=== PATIENT | male | born 1995 | race African-American/Black ===

== ENCOUNTER 2019-08-04 17:29 | Emergency (ER) | payer SELFPAY ==
[2019-08-04] MEDS ORDERED: NORMAL SALINE 1000 ML 1,000 ML IV PRN (18:32)
--- NOTE | 2019-08-04 18:34 | ER Document Report ---
ED Medical Screen (RME) - General Chief Complaint: High Blood Sugar Stated Complaint: POSSIBLE HIGH BLOOD SUGAR, SORE THROAT Time Seen by Provider: 08/04/19 18:27 - HPI Notes: 08/04/19 18:34 24-year-old male presents from [facility] urgent care for concerns of DKA with with a Accu check blood sugar that was read over 500, polyuria, polydipsia that has become progressively worse over the last week. Patient went to the urgent care because he was concerned he may have had a UTI because he has been urinating so much, denies any pain with urination. Patient denies history of diabetes. Patient has had intermittent blood pressure elevations however he went to the urgent care for concerns of a UTI. Denies any fevers or chills, denies any abdominal pain, shortness of breath, chest pain, numbness or tingling down bilateral lower extremities. Denies any recent illnesses. I have greeted and performed a rapid initial assessment of this patient. A comprehensive ED assessment and evaluation of the patient, analysis of test results and completion of the medical decision making process will be conducted by additional ED providers. PHYSICAL EXAMINATION: GENERAL: Well-appearing, well-nourished and in no acute distress. HEAD: Atraumatic, normocephalic. EYES: Pupils equal round extraocular movements intact, conjunctiva are normal. NECK: Normal range of motion CV: s1, s2 regular LUNGS: No respiratory distress Musculoskeletal: Normal range of motion NEUROLOGICAL: Normal speech, normal gait. SKIN: Warm, Dry, normal turgor, no rashes or lesions noted. - Related Data Allergies/Adverse Reactions: No Known Allergies Allergy (Verified 08/04/19 18:27) Physical Exam - Vital signs Vitals: Temp Pulse Resp BP Pulse Ox 98.1 F 123 H 20 158/105 H 96 08/04/19 17:53 08/04/19 17:53 08/04/19 17:53 08/04/19 17:53 08/04/19 17:53 Course - Vital Signs Vital signs: Temp Pulse Resp BP Pulse Ox 98.1 F 123 H 20 158/105 H 96 08/04/19 17:53 08/04/19 17:53 08/04/19 17:53 08/04/19 17:53 08/04/19 17:53
--- NOTE | 2019-08-04 19:16 | RADIOLOGY REPORT (SQ) ---
EXAM DESCRIPTION: CHEST 2 VIEWS COMPLETED DATE/TIME: 08/04/2019 5:49 pm REASON FOR STUDY: r/o PNA COMPARISON: None EXAM PARAMETERS: NUMBER OF VIEWS: two views TECHNIQUE: Digital Frontal and Lateral radiographic views of the chest acquired. RADIATION DOSE: NA LIMITATIONS: none FINDINGS: LUNGS AND PLEURA: No opacities, masses or pneumothorax. No pleural effusion. MEDIASTINUM AND HILAR STRUCTURES: No masses or contour abnormalities. HEART AND VASCULAR STRUCTURES: Heart normal size. No evidence for failure. BONES: No acute findings. HARDWARE: None in the chest. OTHER: No other significant finding. IMPRESSION: NO ACUTE RADIOGRAPHIC FINDING IN THE CHEST. TECHNICAL DOCUMENTATION: JOB ID: [id number] [employer]- All Rights Reserved Reading location - IP/workstation name: [email or web address]
[2019-08-04 19:21] LABS: ABSOLUTE BASOPHILS # (AUTO) 0.1 10^3/uL (0.0-0.2); ABSOLUTE EOSINOPHILS # (AUTO) 0.2 10^3/uL (0.0-0.6); BASOPHILS % (AUTO) 0.8 % (0-2); EOSINOPHILS % (AUTO) 1.3 % (0-6); HEMATOCRIT 42.9 % (37.9-51.0); HEMOGLOBIN 14.8 g/dL (13.5-17.0); LYMPHOCYTES % (AUTO) 40.7 % (13-45); MEAN CORPUSCULAR HEMOGLOBIN 27.3 pg (27.0-33.4); MEAN CORPUSCULAR HGB CONC 34.6 g/dL (32.0-36.0); MEAN CORPUSCULAR VOLUME 79 fl (80-97); PLATELET COUNT 372 10^3/uL (150-450); RED BLOOD COUNT 5.43 10^6/uL (4.35-5.55); SEGMENTED NEUTROPHILS % (AUTO) 49.2 % (42-78); TOTAL CELLS COUNTED % (AUTO) 100 %; WHITE BLOOD COUNT 12.2 10^3/uL (4.0-10.5)
[2019-08-04 19:46] LABS: ALBUMIN 5.2 g/dL (3.5-5.0); ALKALINE PHOSPHATASE 163 U/L (38-126); ASPARTATE AMINO TRANSFERASE 35 U/L (17-59); BILIRUBIN,DIRECT 0.4 mg/dL (0.0-0.4); BILIRUBIN,TOTAL 0.6 mg/dL (0.2-1.3); BLOOD UREA NITROGEN 11 mg/dL (7-20); CALCIUM 10.9 mg/dL (8.4-10.2); POTASSIUM 4.7 mmol/L (3.6-5.0); TOTAL PROTEIN 9.5 g/dL (6.3-8.2)
[2019-08-04 19:51] LABS: CARBON DIOXIDE 22 mmol/L (22-30); CHLORIDE 91 mmol/L (98-107)
[2019-08-04 19:52] LABS: APPEARANCE,URINE CLEAR; BILIRUBIN,URINE NEGATIVE (NEGATIVE); COLOR,URINE YELLOW; GLUCOSE, URINE >=500 mg/dL (NEGATIVE); KETONES,URINE 80 mg/dL (NEGATIVE); LEUKOCYTE ESTERASE,URINE NEGATIVE (NEGATIVE); NITRITE,URINE NEGATIVE (NEGATIVE); PROTEIN,URINE 30 mg/dL (NEGATIVE); URINE SPECIFIC GRAVITY 1.037; UROBILINOGEN,URINE NEGATIVE mg/dL (<2.0)
[2019-08-04 19:54] LABS: ANION GAP 21 (5-19)
[2019-08-04 19:55] LABS: GLUCOSE 463 mg/dL (75-110)
[2019-08-04] MEDS ORDERED: NORMAL SALINE 1000 ML 1,000 ML IV ONE ×2 (21:02→23:03)
[2019-08-04] MEDS ORDERED: INSULIN REG, HUMAN 100 UNIT/ML 3 ML VIAL (PYX) SUBCUT ONE (21:03)
--- NOTE | 2019-08-04 21:04 | ER Document Report ---
ED General - General Chief Complaint: High Blood Sugar Stated Complaint: POSSIBLE HIGH BLOOD SUGAR, SORE THROAT Time Seen by Provider: 08/04/19 18:27 Primary Care Provider: [facility] [Provider Group] - Follow up in 1 week Notes: Patient is a 24-year-old male that comes emergency department for chief compla int of being sent over from urgent care for being found to have blood glucose greater than 500. Patient states for the past week he has been constantly urinating and he became concerned he had a urinary tract infection so he went to be evaluated by urgent care. He denies vomiting, abdominal pain, shortness of breath, fever, dizziness, chest pain. He denies any diagnosed medical history, no past medical history other than obesity. He takes no daily medications. TRAVEL OUTSIDE OF THE [place] IN LAST 30 DAYS: No - Related Data Allergies/Adverse Reactions: No Known Allergies Allergy (Verified 08/04/19 18:27) Past Medical History - General Information source: Patient - Social History Smoking Status: Never Smoker Chew tobacco use (# tins/day): No Frequency of alcohol use: Occasional Drug Abuse: None Lives with: Family Family History: Reviewed & Not Pertinent Patient has suicidal ideation: No Patient has homicidal ideation: No Endocrine Medical History: Reports: Hx Diabetes Mellitus Type 2 - Immunizations Immunizations up to date: Yes Hx Diphtheria, Pertussis, Tetanus Vaccination: Yes Review of Systems - Review of Systems Constitutional: No symptoms reported EENT: No symptoms reported Cardiovascular: No symptoms reported Respiratory: No symptoms reported Gastrointestinal: No symptoms reported Genitourinary: See HPI Male Genitourinary: No symptoms reported Musculoskeletal: No symptoms reported Skin: No symptoms reported Hematologic/Lymphatic: No symptoms reported Neurological/Psychological: No symptoms reported Physical Exam - Vital signs Vitals: Temp Pulse Resp BP Pulse Ox 98.1 F 123 H 20 158/105 H 96 08/04/19 17:53 08/04/19 17:53 08/04/19 17:53 08/04/19 17:53 08/04/19 17:53 - Notes Notes: GENERAL: Alert, interacts well. No acute distress. HEAD: Normocephalic, atraumatic. EYES: Pupils equal, round, and reactive to light. Extraocular movements intact. ENT: Oral mucosa moist, tongue midline. Oropharynx unremarkable. Airway patent. LUNGS: Clear to auscultation bilaterally, no wheezes, rales, or rhonchi. No respiratory distress. HEART: Tachycardia with normal rhythm. No murmur ABDOMEN: Soft, non-tender. Non-distended. EXTREMITIES: Moves all 4 extremities spontaneously. No edema, normal radial and dorsalis pedis pulses bilaterally. No cyanosis. BACK: no cervical, thoracic, lumbar midline tenderness. No saddle anesthesia, normal distal neurovascular exam. Moves all extremities in full range of motion. NEUROLOGICAL: Alert and oriented x3. Normal speech. Cranial nerves II through XII grossly intact. PSYCH: Normal affect, normal mood. SKIN: Warm, dry, normal turgor. No rashes or lesions noted. Course - Re-evaluation Re-evalutation: Patient has new onset diabetes noted with hyperglycemia. He does have some ketones in the urine and his anion gap is borderline, he is also tachycardic. However patient has received IV fluids, insulin, his tachycardia is resolved, he has had no additional symptoms. Symptoms have been going on for days developing up to today. Bicarbonate is normal in addition to this. Clinical picture is most consistent with hypoglycemia in the setting of type 2 diabetes, clinical p icture is not as suggestive of DKA. Blood glucose is downtrending nicely. Remaining work-up unremarkable. On evaluation patient asymptomatic, states he feels great, is requesting to leave. Patient states that he is very motivated to lose weight, eat well, and lose the new onset diabetes. However he is also very cooperative with starting medication and following up within the week with primary care, he asked for referral before I discussed this. I feel patient will be very compliant in clos e follow-up and adjustment of his medications, discussed recommendations, follow-up, return precautions. Patient states appreciation and agreement. Stable at time of discharge. - Vital Signs Vital signs: Temp Pulse Resp BP Pulse Ox 98.5 F 123 H 17 124/56 L 97 08/05/19 01:15 08/04/19 17:53 08/05/19 01:00 08/05/19 01:15 08/05/19 01:00 - Laboratory Result Diagrams: 08/04/19 19:00 08/04/19 19:00 Laboratory results interpreted by me: 08/04/19 08/04/19 08/04/19 18:56 19:00 19:00 WBC 12.2 H MCV 79 L Absolute Lymphs (auto) 5.0 H Sodium 134.3 L Chloride 91 L Anion Gap 21 H Glucose 463 H* POC Glucose 439 H* Calcium 10.9 H Alkaline Phosphatase 163 H Total Protein 9.5 H Albumin 5.2 H Urine Protein Urine Glucose (UA) Urine Ketones Urine Ascorbic Acid 08/04/19 08/05/19 19:18 00:47 WBC MCV Absolute Lymphs (auto) Sodium Chloride Anion Gap Glucose POC Glucose 302 H Calcium Alkaline Phosphatase Total Protein Albumin Urine Protein 30 H Urine Glucose (UA) >=500 H Urine Ketones 80 H Urine Ascorbic Acid 20 H Discharge - Discharge Clinical Impression: New onset type 2 diabetes mellitus, Dehydration Condition: Stable Disposition: HOME, SELF-CARE Additional Instructions: You have type 2 diabetes. Please begin the medication prescribed, avoid foods high in carbohydrates, and follow-up closely with the primary care provider for adjustment and management of your diabetes. Drink plenty of fluids. Return if you worsen including vomiting, severe abdominal pain, inability to urinate, or any other concerning or worsening symptoms. Prescriptions: Metformin HCl [Glucophage 500 mg Tablet] 500 mg PO BID #60 tablet Forms: Return to Work Referrals: [facility] [Provider Group] - Follow up in 1 week
[2019-08-05 01:23] VITALS: BP 124/56
--- NOTE | 2019-08-05 07:11 | EKG REPORT ---
SEVERITY:- OTHERWISE NORMAL ECG - SINUS TACHYCARDIA : Confirmed by: Jose Luis Holly MD 05-Aug-2019 07:10:19
== END 2019-08-05 01:23 | disposition home or self-care (01) ==
LOC: ER 17:29
DX: E11.65 Type 2 diabetes mellitus with hyperglycemia (principal); E86.0 Dehydration; R00.0 Tachycardia, unspecified
CPT/HCPCS: 93005; 99285; 96360; 96361; 36415; 82962; 85025; 80053; 81001; 84484; 71046; 93010; J1815; J7030

== ENCOUNTER 2019-08-10 14:59 | Inpatient (IN) | payer SELFPAY ==
[2019-08-10] MEDS ORDERED: NORMAL SALINE 1000 ML 1,000 ML IV ONE ×2 (15:21→15:22)
--- NOTE | 2019-08-10 15:21 | ER Document Report ---
ED Medical Screen (RME) - General Chief Complaint: High Blood Sugar Stated Complaint: POSSIBLE HIGH BLOOD SUGAR Time Seen by Provider: 08/10/19 15:16 Mode of Arrival: Wheelchair Notes: 24-year-old male presented to ED for elevated blood sugar. He states he has had no appetite and has been eating almost nothing for the last week. He states he has lost 30 pounds in the last week due to no appetite nausea and vomiting. He states he went to the primary care doctor and they got blood sugar on 1 thing of 380 and then another finger 440. We will recheck his Accu-Chek as well as get complete blood sugar work-up. He states he is not able to eat anything more than maybe a yogurt a day due to the nausea and vomiting. His is at his side and states that he has not been eating anything due to nausea and vomiting. His states that he was at the primary care they took his sugar then given 4 units of insulin and his sugar went up after the insulin. I have greeted and performed a rapid initial assessment of this patient. A comprehensive ED assessment and evaluation of the patient, analysis of test results and completion of medical decision making process will be conducted by an additional ED providers. TRAVEL OUTSIDE OF THE [place] IN LAST 30 DAYS: No - Related Data Allergies/Adverse Reactions: No Known Allergies Allergy (Verified 08/04/19 18:27) Past Medical History Endocrine Medical History: Reports: Hx Diabetes Mellitus Type 2 - Immunizations Immunizations up to date: Yes Hx Diphtheria, Pertussis, Tetanus Vaccination: Yes Physical Exam - Vital signs Vitals: Temp Pulse Resp BP Pulse Ox 97.7 F 117 H 18 145/89 H 100 08/10/19 15:14 08/10/19 15:14 08/10/19 15:14 08/10/19 15:14 08/10/19 15:14 Course - Vital Signs Vital signs: Temp Pulse Resp BP Pulse Ox 97.7 F 117 H 18 145/89 H 100 08/10/19 15:14 08/10/19 15:14 08/10/19 15:14 08/10/19 15:14 08/10/19 15:14
[2019-08-10] MEDS ORDERED: ONDANSETRON HCL INJ/PF 4 MG/2 ML SDV IV ONE (15:22)
[2019-08-10 16:12] LABS: ABSOLUTE LYMPHOCYTES (AUTO) 2.4 10^3/uL (0.5-4.7); ABSOLUTE MONOCYTES (AUTO) 0.9 10^3/uL (0.1-1.4); ABSOLUTE NEUT (AUTO) 9.2 10^3/uL (1.7-8.2); BASOPHILS % (AUTO) 0.3 % (0-2); EOSINOPHILS % (AUTO) 0.2 % (0-6); HEMATOCRIT 46.5 % (37.9-51.0); HEMOGLOBIN 15.5 g/dL (13.5-17.0); LYMPHOCYTES % (AUTO) 19.2 % (13-45); MEAN CORPUSCULAR HEMOGLOBIN 26.8 pg (27.0-33.4); MEAN CORPUSCULAR HGB CONC 33.3 g/dL (32.0-36.0); MEAN CORPUSCULAR VOLUME 80 fl (80-97); MONOCYTES % (AUTO) 7.3 % (3-13); PLATELET COUNT 470 10^3/uL (150-450); RED BLOOD COUNT 5.79 10^6/uL (4.35-5.55); RED CELL DISTRIBUTION WIDTH 14.6 % (11.5-14.0); TOTAL CELLS COUNTED % (AUTO) 100 %; WHITE BLOOD COUNT 12.6 10^3/uL (4.0-10.5)
[2019-08-10 16:30] LABS: ALBUMIN 5.5 g/dL (3.5-5.0); ALKALINE PHOSPHATASE 147 U/L (38-126); ASPARTATE AMINO TRANSFERASE 22 U/L (17-59); BILIRUBIN,DIRECT 0.5 mg/dL (0.0-0.4); BILIRUBIN,TOTAL 0.6 mg/dL (0.2-1.3); BLOOD UREA NITROGEN 17 mg/dL (7-20); CALCIUM 10.5 mg/dL (8.4-10.2); POTASSIUM 5.2 mmol/L (3.6-5.0); TOTAL PROTEIN 9.9 g/dL (6.3-8.2)
[2019-08-10 16:35] LABS: CHLORIDE 101 mmol/L (98-107)
[2019-08-10 16:44] LABS: CARBON DIOXIDE 8 mmol/L (22-30); GLUCOSE 491 mg/dL (75-110)
--- NOTE | 2019-08-10 17:52 | ER Document Report ---
ED General - General Chief Complaint: High Blood Sugar Stated Complaint: POSSIBLE HIGH BLOOD SUGAR Time Seen by Provider: 08/10/19 15:16 Primary Care Provider: STIVEN PFEIFFER MD [Primary Care Provider] - Follow up as needed Mode of Arrival: Wheelchair TRAVEL OUTSIDE OF THE [place] IN LAST 30 DAYS: No - HPI Notes: 24-year-old male seen for elevated blood sugar. This gentleman was previously diagnosed with new onset "diabetes mellitus type 2" approximately 1 week ago. He was started on metformin. He has been followed at [facility].. Comes back in today saying he is worse with generalized weakness, vomiting, polydipsia and polyuria. Vision is also blurred. - Related Data Allergies/Adverse Reactions: No Known Allergies Allergy (Verified 08/04/19 18:27) Past Medical History - General Information source: Patient - Social History Smoking Status: Never Smoker Chew tobacco use (# tins/day): No Frequency of alcohol use: None Drug Abuse: None Family History: Reviewed & Not Pertinent Patient has suicidal ideation: No Patient has homicidal ideation: No Endocrine Medical History: Reports: Hx Diabetes Mellitus Type 2 - Immunizations Immunizations up to date: Yes Hx Diphtheria, Pertussis, Tetanus Vaccination: Yes Review of Systems - Review of Systems Notes: Constitutional: Negative for fever. HENT: Negative for sore throat. Eyes: Negative for visual changes. Cardiovascular: Negative for chest pain. Respiratory: Negative for shortness of breath. Gastrointestinal: Nausea and vomiting as per HPI. Genitourinary: Urinary frequency and nocturia. Negative for dysuria. Musculoskeletal: Negative for back pain. Skin: Negative for rash. Neurological: Negative for headaches, weakness or numbness. 10 point ROS negative except as marked above and in HPI. Physical Exam - Vital signs Vitals: Temp Pulse Resp BP Pulse Ox 97.7 F 117 H 18 145/89 H 100 08/10/19 15:14 08/10/19 15:14 08/10/19 15:14 08/10/19 15:14 08/10/19 15:14 - Notes Notes: GENERAL: Moderately obese male who appears approximately stated age alert and awake. SKIN: Good turgor no rashes. HEAD: Normocephalic atraumatic. EYES: PERRLA. EOMI. Conjunctivae and sclerae clear. EARS: CANALS AND TMS CLEAR. NOSE: CLEAR. MOUTH: Moist mucosa. Good dentition. No stridor or edema. No drooling. NECK: Supple. No masses or thyromegaly. No adenopathy. Carotids 2+ without bruits. No JVD. BACK: Symmetrical without tenderness. CHEST: Respirations unlabored. Breath sounds clear and symmetrical. HEART: Regular rhythm. No murmur gallop or rub. ABDOMEN: Soft nontender without masses, organomegaly or rebound. Bowel sounds normally active. No bruits. GENITALIA: Deferred. EXTREMITIES: No edema. No calf tenderness. Cap refill less than 1.5 seconds. Dorsalis pedis and posterior tibial pulses 3+ and symmetrical. NEUROLOGICAL: GCS 15. Alert and oriented x3. Normal gait. Fluent speech. Cranial nerves II through XII intact. Sensorimotor and cerebellar normal. Normal tone. PSYCHIATRIC: Appropriate affect. Course - Re-evaluation Re-evalutation: 08/10/19 18:37 Patient is in DKA. IV insulin drip has been initiated. ICU admission. - Vital Signs Vital signs: Temp Pulse Resp BP Pulse Ox 97.7 F 117 H 18 145/89 H 99 08/10/19 15:14 08/10/19 15:14 08/10/19 15:14 08/10/19 15:14 08/10/19 18:21 - Laboratory Result Diagrams: 08/10/19 15:57 08/10/19 15:57 Laboratory results interpreted by me: 08/10/19 08/10/19 08/10/19 15:20 15:57 15:57 WBC 12.6 H RBC 5.79 H MCH 26.8 L RDW 14.6 H Plt Count 470 H Absolute Neuts (auto) 9.2 H VBG pH VBG HCO3 Potassium 5.2 H Carbon Dioxide 8 L* Anion Gap 29 H Glucose 491 H* POC Glucose 418 H* Calcium 10.5 H Direct Bilirubin 0.5 H Alkaline Phosphatase 147 H Total Protein 9.9 H Albumin 5.5 H Urine Protein Urine Glucose (UA) Urine Ketones Urine Blood Ur Leukocyte Esterase 08/10/19 08/10/19 08/10/19 16:30 17:56 18:07 WBC RBC MCH RDW Plt Count Absolute Neuts (auto) VBG pH 7.07 L* VBG HCO3 11.8 L Potassium Carbon Dioxide Anion Gap Glucose POC Glucose 326 H Calcium Direct Bilirubin Alkaline Phosphatase Total Protein Albumin Urine Protein 100 H Urine Glucose (UA) >=500 H Urine Ketones 80 H Urine Blood SMALL H Ur Leukocyte Esterase TRACE H Critical Care Note - Critical Care Note Total time excluding time spent on procedures (mins): 35 Comments: IV normal saline bolus. IV insulin drip initiated. Case discussed with general claims agent and patient will be admitted to ICU. Discharge - Discharge Clinical Impression: Diabetic ketoacidosis Qualifiers: Diabetes mellitus type: other specified (including EMILE) Diabetes mellitus complication detail: without coma Qualified Code(s): E13.10 - Other specified diabetes mellitus with ketoacidosis without coma Condition: Critical Disposition: ADMITTED INPATIENT Admitting Provider: Kranthi (Communications Maintainer) Unit Admitted: ICU Referrals: STIVEN PFEIFFER MD [Primary Care Provider] - Follow up as needed
[2019-08-10 18:07] LABS: APPEARANCE,URINE CLEAR; BILIRUBIN,URINE NEGATIVE (NEGATIVE); COLOR,URINE YELLOW; GLUCOSE, URINE >=500 mg/dL (NEGATIVE); KETONES,URINE 80 mg/dL (NEGATIVE); LEUKOCYTE ESTERASE,URINE TRACE (NEGATIVE); NITRITE,URINE NEGATIVE (NEGATIVE); PROTEIN,URINE 100 mg/dL (NEGATIVE); URINE SPECIFIC GRAVITY 1.023; UROBILINOGEN,URINE NEGATIVE mg/dL (<2.0)
[2019-08-10 18:14] LABS: VENOUS BLOOD BASE EXCESS -17.7 mmol/L; VENOUS BLOOD HCO3 11.8 mmol/L (20-32); VENOUS BLOOD PCO2 41.5 mmHg (35-63)
[2019-08-10 18:16] LABS: VENOUS BLOOD PH 7.07 (7.30-7.42)
[2019-08-10 18:22] LABS: ANION GAP 29 (5-19)
[2019-08-10] MEDS ORDERED: NORMAL SALINE 100 ML with INSULIN REGULAR, HUMAN 100 UNIT IV PRN ×2 (18:32)
[2019-08-10] MEDS ORDERED: ACETAMINOPHEN 325 MG TABLET PO PRN (18:35)
[2019-08-10] MEDS ORDERED: ONDANSETRON HCL INJ/PF 4 MG/2 ML SDV IV PRN (18:35)
[2019-08-10] MEDS ORDERED: GLUCAGON,HUMAN RECOMB 1 MG INJ IM PRN (18:40)
[2019-08-10] MEDS ORDERED: DEXTROSE 50%-WATER 25 GM/50 ML DISP.SYRIN IV PRN ×2 (18:40)
[2019-08-10] MEDS ORDERED: DEXTROSE 40% GEL 15 GM TUBE PO PRN ×2 (18:40)
--- NOTE | 2019-08-10 18:56 | CRITICAL CARE ADMISSION REPORT ---
HPI Date:: 08/10/19 - Critical Care Attending Time:: 18:49 HPI: Pt is a 24 yo morbidly obese man who was recently diagnosed with Type II DM and was started on Metformin 500 mg BID. He states he has been taking his medication. He presented to his PCP today c/o polyuria, polydipsia, excessive thirst and vomiting. He was found to be in DKA and was sent to the ED. In the ED, his blood sugar was 491. He was given 2 liters IVF. An insulin drip has been ordered. He denies and F/C/CP/SOA or sick contacts. His is at the bedside. - Diagnosis/Plan (1) Diabetic ketoacidosis Qualifiers: Diabetes mellitus type: type 2 Diabetes mellitus complication detail: without coma Qualified Code(s): E11.10 - Type 2 diabetes mellitus with ketoacidosis without coma (2) Type II diabetes mellitus Qualifiers: Diabetes mellitus buttermaker insulin use: without buttermaker use Is this a current diagnosis for this admission?: Yes (4) Morbid obesity with BMI of 40.0-44.9, adult Is this a current diagnosis for this admission?: Yes Past Medical History Endocrine Medical History: Reports: Diabetes Mellitus Type 2 Social/Family History - Social History Smoking Status: Never Smoker - Medication/Allergies Home Medications: Metformin HCl [Glucophage 500 mg Tablet] 500 mg PO BID #60 tablet 08/05/19 Allergies/Adverse Reactions: No Known Allergies Allergy (Verified 08/04/19 18:27) Physical Exam Vital Signs: Temp Pulse Resp BP Pulse Ox 97.7 F 117 H 18 145/89 H 98 08/10/19 15:14 08/10/19 15:14 08/10/19 15:14 08/10/19 15:14 08/10/19 18:38 Intake & Output 08/09/19 08/10/19 08/11/19 06:59 06:59 06:59 Intake Total 1999 Balance 1999 Weight 144.8 kg Weight/Height Weight 144.8 kg Height 6 ft 2 in General appearance: PRESENT: no acute distress, well-developed, well-nourished - morbidly obese, awake, alert, NAD Head exam: PRESENT: atraumatic, normocephalic Respiratory exam: PRESENT: clear to auscultation tarah, unlabored Cardiovascular exam: PRESENT: RRR GI/Abdominal exam: PRESENT: soft, other - obese, NTND Gentrourinary exam: PRESENT: other - no edema Musculoskeletal exam: PRESENT: normal inspection Neurological exam: PRESENT: alert, awake Laboratory/Radiographs Laboratory Results: 08/10/19 15:57 08/10/19 15:57 08/10/19 08/10/19 08/10/19 15:57 15:57 15:57 WBC 12.6 H RBC 5.79 H Hgb 15.5 Hct 46.5 MCV 80 MCH 26.8 L MCHC 33.3 RDW 14.6 H Plt Count 470 H Seg Neutrophils % 73.0 VBG pH VBG pCO2 VBG HCO3 VBG Base Excess Sodium 137.5 Potassium 5.2 H Chloride 101 Carbon Dioxide 8 L* Anion Gap 29 H BUN 17 Creatinine 0.96 Est GFR ( Amer) > 60 Glucose 491 H* Lactic Acid 1.2 Calcium 10.5 H Total Bilirubin 0.6 AST 22 Alkaline Phosphatase 147 H Total Protein 9.9 H Albumin 5.5 H Urine Color Urine Appearance Urine pH Ur Specific [place] Urine Protein Urine Glucose (UA) Urine Ketones Urine Blood Urine Nitrite Ur Leukocyte Esterase Urine WBC (Auto) Urine RBC (Auto) 08/10/19 08/10/19 16:30 17:56 WBC RBC Hgb Hct MCV MCH MCHC RDW Plt Count Seg Neutrophils % VBG pH 7.07 L* VBG pCO2 41.5 VBG HCO3 11.8 L VBG Base Excess -17.7 Sodium Potassium Chloride Carbon Dioxide Anion Gap BUN Creatinine Est GFR ( Amer) Glucose Lactic Acid Calcium Total Bilirubin AST Alkaline Phosphatase Total Protein Albumin Urine Color YELLOW Urine Appearance CLEAR Urine pH 6.0 Ur Specific [place] 1.023 Urine Protein 100 H Urine Glucose (UA) >=500 H Urine Ketones 80 H Urine Blood SMALL H Urine Nitrite NEGATIVE Ur Leukocyte Esterase TRACE H Urine WBC (Auto) 25 Urine RBC (Auto) 1 EKG: EKG pending Critical Time Critical Time (minutes): 35 -: The care of a critically ill patient is dynamic. This note represents a static moment in the admission process. Orders and treatments may be given simultaneously and urgently, and time is not dairy supplies sales representative of the treatment process. This patient requires Critical Care secondary to life threatening organ or limb dysfunction. Without Critical Care services, the patient is at risk for increased mortality and morbidity. Provider Note Provider Note: Assessment: 24 yo man with DKA, Type II DM, morbid obesity. Plan: 1. Respiratory: stable on RA 2. CV: heart rate and BP acceptable 3. Endocrine: recent diagnosis of type II DM, DKA. Will start insulin drip, resume IVF. Will check frequent BMPs 4. Nutrition: NPO 5.Prophylaxis: Lovenox Critical care time= 35 min, excluding procedures
[2019-08-10] MEDS: NORMAL SALINE 1000 ML 1,000 ML IV PRN ×2 (19:03→20:23)
[2019-08-10] MEDS: NORMAL SALINE 100 ML with INSULIN REGULAR, HUMAN 100 UNIT IV PRN ×2 (20:34)
[2019-08-11 00:07] LABS: BLOOD UREA NITROGEN 13 mg/dL (7-20); CALCIUM 9.3 mg/dL (8.4-10.2); GLUCOSE 272 mg/dL (75-110)
[2019-08-11 00:12] LABS: CHLORIDE 107 mmol/L (98-107)
[2019-08-11 00:20] LABS: ANION GAP 25 (5-19); POTASSIUM 4.2 mmol/L (3.6-5.0)
[2019-08-11 00:21] LABS: CARBON DIOXIDE 7 mmol/L (22-30)
[2019-08-11] MEDS: NYSTATIN 500000 UNIT/5 ML UDCUP PO SCH ×5 (01:10→22:10)
[2019-08-11] MEDS: DEXTROSE 5%-1/2 NORMAL SALINE 1,000 ML IV PRN ×4 (02:00→23:44)
[2019-08-11 02:58] LABS: ABSOLUTE BASOPHILS # (AUTO) 0.1 10^3/uL (0.0-0.2); ABSOLUTE EOSINOPHILS # (AUTO) 0.1 10^3/uL (0.0-0.6); ABSOLUTE LYMPHOCYTES (AUTO) 3.5 10^3/uL (0.5-4.7); ABSOLUTE MONOCYTES (AUTO) 1.3 10^3/uL (0.1-1.4); ABSOLUTE NEUT (AUTO) 6.5 10^3/uL (1.7-8.2); BASOPHILS % (AUTO) 1.1 % (0-2); EOSINOPHILS % (AUTO) 0.9 % (0-6); HEMATOCRIT 40.3 % (37.9-51.0); HEMOGLOBIN 13.5 g/dL (13.5-17.0); LYMPHOCYTES % (AUTO) 30.5 % (13-45); MEAN CORPUSCULAR HEMOGLOBIN 26.6 pg (27.0-33.4); MEAN CORPUSCULAR HGB CONC 33.5 g/dL (32.0-36.0); MEAN CORPUSCULAR VOLUME 80 fl (80-97); MONOCYTES % (AUTO) 10.9 % (3-13); PLATELET COUNT 333 10^3/uL (150-450); RED BLOOD COUNT 5.07 10^6/uL (4.35-5.55); RED CELL DISTRIBUTION WIDTH 14.5 % (11.5-14.0); SEGMENTED NEUTROPHILS % (AUTO) 56.6 % (42-78); TOTAL CELLS COUNTED % (AUTO) 100 %; WHITE BLOOD COUNT 11.6 10^3/uL (4.0-10.5)
[2019-08-11 03:13] LABS: ANION GAP 19 (5-19); BLOOD UREA NITROGEN 12 mg/dL (7-20); CHLORIDE 110 mmol/L (98-107); GLUCOSE 207 mg/dL (75-110); POTASSIUM 4.2 mmol/L (3.6-5.0)
[2019-08-11 03:28] LABS: CARBON DIOXIDE 10 mmol/L (22-30)
[2019-08-11] MEDS: NORMAL SALINE 100 ML with INSULIN REGULAR, HUMAN 100 UNIT IV PRN ×4 (07:03→15:15)
[2019-08-11] MEDS: ENOXAPARIN SODIUM INJ 40 MG/0.4 ML DISP.SYRIN SUBCUT SCH (09:17)
--- NOTE | 2019-08-11 09:19 | EKG REPORT ---
SEVERITY:- ABNORMAL ECG - SINUS TACHYCARDIA PROLONGED QT INTERVAL : Confirmed by: Judah Mercedes 11-Aug-2019 09:18:32
--- NOTE | 2019-08-11 09:36 | RADIOLOGY REPORT (SQ) ---
EXAM DESCRIPTION: CHEST SINGLE VIEW COMPLETED DATE/TIME: 08/11/2019 9:23 am REASON FOR STUDY: leukocytosis COMPARISON: 08/04/2019 EXAM PARAMETERS: NUMBER OF VIEWS: One view. TECHNIQUE: Single frontal radiographic view of the chest acquired. RADIATION DOSE: NA LIMITATIONS: None. FINDINGS: LUNGS AND PLEURA: Minimal linear lingular opacities. No pleural effusion or pneumothorax. MEDIASTINUM AND HILAR STRUCTURES: No masses. Contour normal. HEART AND VASCULAR STRUCTURES: Heart normal in size. Normal vasculature. BONES: No acute findings. HARDWARE: None in the chest. OTHER: No other significant finding. IMPRESSION: Minimal linear lingular opacities, likely possibly atelectasis or mild pneumonia. TECHNICAL DOCUMENTATION: JOB ID: [id number] [employer]- All Rights Reserved Reading location - IP/workstation name: [email or web address]
[2019-08-11 09:39] LABS: ANION GAP 14 (5-19); BLOOD UREA NITROGEN 11 mg/dL (7-20); CALCIUM 9.4 mg/dL (8.4-10.2); CARBON DIOXIDE 15 mmol/L (22-30); CHLORIDE 110 mmol/L (98-107); GLUCOSE 135 mg/dL (75-110); POTASSIUM 3.9 mmol/L (3.6-5.0)
--- NOTE | 2019-08-11 10:18 | EKG REPORT ---
SEVERITY:- ABNORMAL ECG - SINUS TACHYCARDIA PROLONGED QT INTERVAL : Confirmed on behalf of: Judah Mercedes 11-Aug-2019 10:16:45
[2019-08-11] MEDS ORDERED: CEFTRIAXONE 1 GM/D5W RTU 1 GM/50 ML RTUPB IV SCH (12:00)
[2019-08-11] MEDS ORDERED: LEVOFLOXACIN 750 MG TABLET PO SCH (12:00)
--- NOTE | 2019-08-11 12:05 | PDOC CRITICAL CARE PROG REPORT ---
General Date:: 08/11/19 - Critical Care Attending Note Events in the past 12 to 24 Hours:: Pt remains on insulin drip. Has no complaints. - Medications: Medications reviewed and adjusted accordingly: Yes Physical Exam Vital Signs: Temp Pulse Resp BP Pulse Ox 96.5 F L 105 H 18 130/71 H 100 08/11/19 08:00 08/11/19 10:00 08/11/19 10:00 08/11/19 10:01 08/11/19 10:01 Intake & Output 08/10/19 08/11/19 08/12/19 06:59 06:59 06:59 Intake Total 3168 1002 Output Total 1250 0 Balance 1918 1002 Weight 148.6 kg Weight/Height Weight 148.6 kg Height 6 ft 2 in General appearance: PRESENT: no acute distress, well-developed, well-nourished, other - awake,alert, obese, NAD Head exam: PRESENT: atraumatic, normocephalic Respiratory exam: PRESENT: clear to auscultation tarah, unlabored Cardiovascular exam: PRESENT: RRR GI/Abdominal exam: PRESENT: soft Extremities exam: PRESENT: other - trace edema Musculoskeletal exam: PRESENT: normal inspection Laboratory/Radiographs Laboratory Results: 08/11/19 02:51 08/11/19 09:04 08/10/19 08/10/19 08/10/19 15:57 15:57 15:57 WBC 12.6 H RBC 5.79 H Hgb 15.5 Hct 46.5 MCV 80 MCH 26.8 L MCHC 33.3 RDW 14.6 H Plt Count 470 H Seg Neutrophils % 73.0 VBG pH VBG pCO2 VBG HCO3 VBG Base Excess Sodium 137.5 Potassium 5.2 H Chloride 101 Carbon Dioxide 8 L* Anion Gap 29 H BUN 17 Creatinine 0.96 Est GFR ( Amer) > 60 Glucose 491 H* Lactic Acid 1.2 Calcium 10.5 H Total Bilirubin 0.6 AST 22 Alkaline Phosphatase 147 H Total Protein 9.9 H Albumin 5.5 H Urine Color Urine Appearance Urine pH Ur Specific [place] Urine Protein Urine Glucose (UA) Urine Ketones Urine Blood Urine Nitrite Ur Leukocyte Esterase Urine WBC (Auto) Urine RBC (Auto) 08/10/19 08/10/19 08/10/19 16:30 17:56 23:35 WBC RBC Hgb Hct MCV MCH MCHC RDW Plt Count Seg Neutrophils % VBG pH 7.07 L* VBG pCO2 41.5 VBG HCO3 11.8 L VBG Base Excess -17.7 Sodium 139.1 Potassium 4.2 D Chloride 107 Carbon Dioxide 7 L* Anion Gap 25 H BUN 13 Creatinine 0.77 Est GFR ( Amer) > 60 Glucose 272 H Lactic Acid Calcium 9.3 Total Bilirubin AST Alkaline Phosphatase Total Protein Albumin Urine Color YELLOW Urine Appearance CLEAR Urine pH 6.0 Ur Specific [place] 1.023 Urine Protein 100 H Urine Glucose (UA) >=500 H Urine Ketones 80 H Urine Blood SMALL H Urine Nitrite NEGATIVE Ur Leukocyte Esterase TRACE H Urine WBC (Auto) 25 Urine RBC (Auto) 1 08/11/19 08/11/19 08/11/19 02:51 02:51 09:04 WBC 11.6 H RBC 5.07 Hgb 13.5 Hct 40.3 MCV 80 MCH 26.6 L MCHC 33.5 RDW 14.5 H Plt Count 333 Seg Neutrophils % 56.6 VBG pH VBG pCO2 VBG HCO3 VBG Base Excess Sodium 139.0 139.1 Potassium 4.2 3.9 Chloride 110 H 110 H Carbon Dioxide 10 L* 15 L Anion Gap 19 14 BUN 12 11 Creatinine 0.71 0.73 Est GFR ( Amer) > 60 > 60 Glucose 207 H 135 H Lactic Acid Calcium 9.0 9.4 Total Bilirubin AST Alkaline Phosphatase Total Protein Albumin Urine Color Urine Appearance Urine pH Ur Specific [place] Urine Protein Urine Glucose (UA) Urine Ketones Urine Blood Urine Nitrite Ur Leukocyte Esterase Urine WBC (Auto) Urine RBC (Auto) 08/10/19 08/11/19 19:19 09:04 Troponin I 0.031 < 0.012 Impressions: Chest X-Ray 08/11/19 08:37 IMPRESSION: Minimal linear lingular opacities, likely possibly atelectasis or mild pneumonia. EKG: ST] . SINUS TACHYCARDIA [LQT] . 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 Plan: 1. Respiratory: stable on RA 2. Pulmonary: CAP. Will start rocephin and doxycycline 2. CV: heart rate and BP acceptable. Prolonged QTc. Will avoid QT prolonging agents. Check magnesium level. Repeat EKG in am 3. Endocrine: recent diagnosis of type II DM, DKA. Continue insulin drip 4. ID: CAP, oral candidiasis. Will start rocephin and doxycycline. Continue nystatin 5 Nutrition: NPO 6.Prophylaxis: Lovenox 7. Disposition: continue to monitor in ICU Critical Time Critical Time (minutes): 40 Level of Care: ICU -: 1. The care of a critical patient is a dynamic process. This note is a product sales representative synopsis but static in nature. The timeframe for treatments given in order is not necessarily the actual time these treatments may have been done. 2. This patient requires critical care secondary to ongoing requirements for therapy not offered or safe outside the critical care environment. Transfer to a lower level of care will result in altered life or limb morbidity and mortality. 3. Multidisciplinary rounds completed. 4. ABCDE bundle addressed.
[2019-08-11 13:17] LABS: A TYPE INFLUENZA AG NEGATIVE (NEGATIVE); B INFLUENZA AG NEGATIVE (NEGATIVE)
[2019-08-11] MEDS: CEFTRIAXONE 1 GM/D5W RTU 1 GM/50 ML RTUPB IV SCH (15:16)
[2019-08-11 16:05] LABS: ANION GAP 13 (5-19); BLOOD UREA NITROGEN 9 mg/dL (7-20); CALCIUM 9.3 mg/dL (8.4-10.2); CARBON DIOXIDE 15 mmol/L (22-30); CHLORIDE 109 mmol/L (98-107); GLUCOSE 190 mg/dL (75-110); POTASSIUM 3.8 mmol/L (3.6-5.0)
[2019-08-11] MEDS: DOXYCYCLINE HYCLATE 100 MG TABLET PO SCH (21:31)
[2019-08-11 21:52] LABS: ANION GAP 15 (5-19); BLOOD UREA NITROGEN 10 mg/dL (7-20); CALCIUM 9.3 mg/dL (8.4-10.2); CARBON DIOXIDE 16 mmol/L (22-30); CHLORIDE 106 mmol/L (98-107); GLUCOSE 232 mg/dL (75-110); POTASSIUM 3.7 mmol/L (3.6-5.0)
[2019-08-11] MEDS ORDERED: ONDANSETRON HCL INJ/PF 4 MG/2 ML SDV ONE (22:41)
[2019-08-11] MEDS ORDERED: NYSTATIN OINTMENT 15 GM TUBE TP ONE (23:00)
[2019-08-11] MEDS ORDERED: ONDANSETRON HCL INJ/PF 4 MG/2 ML SDV IV ONE (23:30)
[2019-08-11] MEDS ORDERED: NYSTATIN OINTMENT 15 GM TUBE ONE (23:36)
[2019-08-12] MEDS ORDERED: INSULIN REG, HUMAN 100 UNIT/ML 3 ML VIAL (PYX) ONE (02:19)
[2019-08-12] MEDS: NORMAL SALINE 100 ML with INSULIN REGULAR, HUMAN 100 UNIT IV PRN ×6 (02:22→15:32)
[2019-08-12 03:22] LABS: HEMATOCRIT 37.4 % (37.9-51.0); HEMOGLOBIN 12.8 g/dL (13.5-17.0); MEAN CORPUSCULAR HEMOGLOBIN 26.6 pg (27.0-33.4); MEAN CORPUSCULAR HGB CONC 34.2 g/dL (32.0-36.0); MEAN CORPUSCULAR VOLUME 78 fl (80-97); PLATELET COUNT 297 10^3/uL (150-450); RED CELL DISTRIBUTION WIDTH 14.2 % (11.5-14.0); WHITE BLOOD COUNT 8.2 10^3/uL (4.0-10.5)
[2019-08-12 03:34] LABS: ANION GAP 16 (5-19); BLOOD UREA NITROGEN 9 mg/dL (7-20); CALCIUM 9.5 mg/dL (8.4-10.2); CARBON DIOXIDE 15 mmol/L (22-30); CHLORIDE 108 mmol/L (98-107); GLUCOSE 160 mg/dL (75-110); POTASSIUM 3.2 mmol/L (3.6-5.0)
[2019-08-12] MEDS ORDERED: POTASSIUM CHLORIDE 10 MEQ TABLET.ER PO ONE ×2 (09:30→16:45)
[2019-08-12 09:46] LABS: ANION GAP 14 (5-19); BLOOD UREA NITROGEN 8 mg/dL (7-20); CALCIUM 9.4 mg/dL (8.4-10.2); CARBON DIOXIDE 17 mmol/L (22-30); CHLORIDE 108 mmol/L (98-107); GLUCOSE 121 mg/dL (75-110); POTASSIUM 3.2 mmol/L (3.6-5.0)
[2019-08-12] MEDS: DOXYCYCLINE HYCLATE 100 MG TABLET PO SCH ×2 (10:02→21:39)
[2019-08-12] MEDS: NYSTATIN 500000 UNIT/5 ML UDCUP PO SCH ×3 (10:02→21:39)
[2019-08-12] MEDS: ENOXAPARIN SODIUM INJ 40 MG/0.4 ML DISP.SYRIN SUBCUT SCH (10:03)
[2019-08-12] MEDS: CEFTRIAXONE 1 GM/D5W RTU 1 GM/50 ML RTUPB IV SCH (10:03)
--- NOTE | 2019-08-12 11:46 | PDOC CRITICAL CARE PROG REPORT ---
General Date:: 08/12/19 - Critical Care Attending Note Events in the past 12 to 24 Hours:: Pt remains on insulin drip. Has no complaints. Still with decreased appetite. - Medications: Medications reviewed and adjusted accordingly: Yes Physical Exam Vital Signs: Temp Pulse Resp BP Pulse Ox 97.7 F 129 H 17 131/75 H 100 08/12/19 10:00 08/12/19 10:00 08/12/19 10:13 08/12/19 10:13 08/12/19 10:13 Intake & Output 08/11/19 08/12/19 08/13/19 06:59 06:59 06:59 Intake Total 3168 3254 101 Output Total 1250 1100 Balance 1918 2154 101 Weight 148.6 kg 156.3 kg Weight/Height Weight 156.3 kg Height 6 ft 2 in General appearance: PRESENT: no acute distress, well-developed, well-nourished, other - obese Head exam: PRESENT: atraumatic, normocephalic Respiratory exam: PRESENT: clear to auscultation tarah, unlabored Cardiovascular exam: PRESENT: RRR GI/Abdominal exam: PRESENT: soft Extremities exam: PRESENT: other - no edema Neurological exam: PRESENT: alert, awake Laboratory/Radiographs Laboratory Results: 08/12/19 03:06 08/12/19 09:17 08/11/19 08/11/19 08/11/19 02:51 15:23 20:59 WBC RBC Hgb Hct MCV MCH MCHC RDW Plt Count Sodium 137.3 137.1 Potassium 3.8 3.7 Chloride 109 H 106 Carbon Dioxide 15 L 16 L Anion Gap 13 15 BUN 9 10 Creatinine 0.66 0.66 Est GFR ( Amer) > 60 > 60 Glucose 190 H 232 H Calcium 9.3 9.3 Magnesium 2.3 08/12/19 08/12/19 08/12/19 03:06 03:06 09:17 WBC 8.2 RBC 4.80 Hgb 12.8 L Hct 37.4 L MCV 78 L MCH 26.6 L MCHC 34.2 RDW 14.2 H Plt Count 297 Sodium 138.8 138.5 Potassium 3.2 L 3.2 L Chloride 108 H 108 H Carbon Dioxide 15 L 17 L Anion Gap 16 14 BUN 9 8 Creatinine 0.58 0.62 Est GFR ( Amer) > 60 > 60 Glucose 160 H 121 H Calcium 9.5 9.4 Magnesium 08/10/19 08/11/19 19:19 09:04 Troponin I 0.031 < 0.012 Impressions: Chest X-Ray 08/11/19 08:37 IMPRESSION: Minimal linear lingular opacities, likely possibly atelectasis or mild pneumonia. 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 Plan: 1. Respiratory: stable on RA 2. Pulmonary: CAP. Day 2 rocephin and doxycycline 2. CV: heart rate and BP acceptable. Prolonged QTc. Will avoid QT prolonging agents. Hypokalemia, replace K. 3. Endocrine: recent diagnosis of type II DM, DKA. Continue insulin drip 4. ID: CAP, oral candidiasis. Day 2 rocephin and doxycycline. Continue nystatin 5 Nutrition: clear liquid diet 6.Prophylaxis: Lovenox 7. Disposition: continue to monitor in ICU Critical Time Critical Time (minutes): 0 - level three inpt followup Level of Care: ICU -: 1. The care of a critical patient is a dynamic process. This note is a loan representative synopsis but static in nature. The timeframe for treatments given in order is not necessarily the actual time these treatments may have been done. 2. This patient requires critical care secondary to ongoing requirements for therapy not offered or safe outside the critical care environment. Transfer to a lower level of care will result in altered life or limb morbidity and mortality. 3. Multidisciplinary rounds completed. 4. ABCDE bundle addressed.
--- NOTE | 2019-08-12 13:04 | EKG REPORT ---
SEVERITY:- ABNORMAL ECG - SINUS RHYTHM PROLONGED QT INTERVAL : Confirmed by: Judah Mercedes 12-Aug-2019 13:03:20
[2019-08-12] MEDS: DEXTROSE 5%-1/2 NORMAL SALINE 1,000 ML IV PRN (14:48)
[2019-08-12] MEDS: NYSTATIN OINTMENT 15 GM TUBE TP SCH (15:38)
[2019-08-12 15:59] LABS: ANION GAP 12 (5-19); BLOOD UREA NITROGEN 7 mg/dL (7-20); CALCIUM 9.5 mg/dL (8.4-10.2); CARBON DIOXIDE 20 mmol/L (22-30); CHLORIDE 106 mmol/L (98-107); GLUCOSE 135 mg/dL (75-110); POTASSIUM 3.1 mmol/L (3.6-5.0)
[2019-08-12] MEDS: INSULIN GLARGINE,HUM.REC.ANLOG 1,000 UNIT/10 ML VIAL SUBCUT SCH (17:01)
[2019-08-12] MEDS: INSULIN REG, HUMAN 100 UNIT/ML 3 ML VIAL (PYX) SUBCUT SCH ×2 (19:35→22:35)
[2019-08-12 22:23] LABS: ANION GAP 17 (5-19); BLOOD UREA NITROGEN 7 mg/dL (7-20); CALCIUM 9.7 mg/dL (8.4-10.2); CARBON DIOXIDE 16 mmol/L (22-30); CHLORIDE 105 mmol/L (98-107); GLUCOSE 172 mg/dL (75-110); POTASSIUM 3.7 mmol/L (3.6-5.0)
[2019-08-13 03:25] LABS: HEMATOCRIT 36.1 % (37.9-51.0); HEMOGLOBIN 12.5 g/dL (13.5-17.0); MEAN CORPUSCULAR HEMOGLOBIN 26.6 pg (27.0-33.4); MEAN CORPUSCULAR HGB CONC 34.5 g/dL (32.0-36.0); MEAN CORPUSCULAR VOLUME 77 fl (80-97); PLATELET COUNT 275 10^3/uL (150-450); RED BLOOD COUNT 4.69 10^6/uL (4.35-5.55); RED CELL DISTRIBUTION WIDTH 14.2 % (11.5-14.0); WHITE BLOOD COUNT 7.8 10^3/uL (4.0-10.5)
[2019-08-13 03:50] LABS: ANION GAP 10 (5-19); BLOOD UREA NITROGEN 8 mg/dL (7-20); CALCIUM 9.4 mg/dL (8.4-10.2); CARBON DIOXIDE 19 mmol/L (22-30); CHLORIDE 108 mmol/L (98-107); GLUCOSE 184 mg/dL (75-110); POTASSIUM 3.5 mmol/L (3.6-5.0)
[2019-08-13] MEDS: INSULIN GLARGINE,HUM.REC.ANLOG 1,000 UNIT/10 ML VIAL SUBCUT SCH ×2 (05:50→17:11)
[2019-08-13] MEDS: INSULIN REG, HUMAN 100 UNIT/ML 3 ML VIAL (PYX) SUBCUT SCH ×4 (09:28→21:46)
[2019-08-13] MEDS: DOXYCYCLINE HYCLATE 100 MG TABLET PO SCH ×2 (09:29→21:45)
[2019-08-13] MEDS: ENOXAPARIN SODIUM INJ 40 MG/0.4 ML DISP.SYRIN SUBCUT SCH (09:29)
[2019-08-13] MEDS: CEFTRIAXONE 1 GM/D5W RTU 1 GM/50 ML RTUPB IV SCH (09:29)
[2019-08-13] MEDS: NYSTATIN 500000 UNIT/5 ML UDCUP PO SCH ×4 (09:29→21:45)
[2019-08-13] MEDS: NYSTATIN OINTMENT 15 GM TUBE TP SCH (09:30)
[2019-08-13 10:00] LABS: BLOOD UREA NITROGEN 7 mg/dL (7-20); CALCIUM 9.2 mg/dL (8.4-10.2); CARBON DIOXIDE 18 mmol/L (22-30); CHLORIDE 106 mmol/L (98-107); GLUCOSE 242 mg/dL (75-110); POTASSIUM 3.5 mmol/L (3.6-5.0)
[2019-08-13] MEDS ORDERED: POTASSIUM CHLORIDE 10 MEQ TABLET.ER PO ONE ×2 (10:00→13:09)
[2019-08-13 10:01] LABS: ANION GAP 13 (5-19)
--- NOTE | 2019-08-13 11:34 | PDOC CRITICAL CARE PROG REPORT ---
General Date:: 08/13/19 - Critical Care Attending Note Events in the past 12 to 24 Hours:: Pt is off his insulin drip. Has no complaints. - Medications: Medications reviewed and adjusted accordingly: Yes Physical Exam Vital Signs: Temp Pulse Resp BP Pulse Ox 98.1 F 89 14 131/71 H 100 08/13/19 08:00 08/13/19 08:00 08/13/19 10:00 08/13/19 09:01 08/13/19 10:00 Intake & Output 08/12/19 08/13/19 08/14/19 06:59 06:59 06:59 Intake Total 4254 1750 Output Total 1100 420 Balance 3154 1330 Weight 156.3 kg 157.1 kg Weight/Height Weight 157.1 kg Height 6 ft 2 in General appearance: PRESENT: no acute distress, well-developed, well-nourished Head exam: PRESENT: atraumatic, normocephalic Respiratory exam: PRESENT: clear to auscultation tarah, unlabored Cardiovascular exam: PRESENT: RRR GI/Abdominal exam: PRESENT: soft Musculoskeletal exam: PRESENT: normal inspection Laboratory/Radiographs Laboratory Results: 08/13/19 03:19 08/13/19 09:20 08/12/19 08/12/19 08/13/19 15:15 21:44 03:19 WBC 7.8 RBC 4.69 Hgb 12.5 L Hct 36.1 L MCV 77 L MCH 26.6 L MCHC 34.5 RDW 14.2 H Plt Count 275 Sodium 138.2 138.0 Potassium 3.1 L 3.7 Chloride 106 105 Carbon Dioxide 20 L 16 L Anion Gap 12 17 BUN 7 7 Creatinine 0.63 0.63 Est GFR ( Amer) > 60 > 60 Glucose 135 H 172 H Calcium 9.5 9.7 08/13/19 08/13/19 03:19 09:20 WBC RBC Hgb Hct MCV MCH MCHC RDW Plt Count Sodium 137.3 136.8 L Potassium 3.5 L 3.5 L Chloride 108 H 106 Carbon Dioxide 19 L 18 L Anion Gap 10 13 BUN 8 7 Creatinine 0.61 0.56 Est GFR ( Amer) > 60 > 60 Glucose 184 H 242 H Calcium 9.4 9.2 08/10/19 08/11/19 19:19 09:04 Troponin I 0.031 < 0.012 Impressions: Chest X-Ray 08/11/19 08:37 IMPRESSION: Minimal linear lingular opacities, likely possibly atelectasis or mild pneumonia. Assessment and Plan - Diagnosis (1) Diabetic ketoacidosis Qualifiers: Diabetes mellitus type: type 2 Diabetes mellitus complication detail: without coma Qualified Code(s): E11.10 - Type 2 diabetes mellitus with ketoacidosis without coma Is this a current diagnosis for this admission?: Yes (2) Type II diabetes mellitus Qualifiers: Diabetes mellitus residential insulin use: without residential use Is this a current diagnosis for this admission?: Yes (4) Morbid obesity with BMI of 40.0-44.9, adult Is this a current diagnosis for this admission?: Yes (5) Prolonged Q-T interval on ECG Is this a current diagnosis for this admission?: Yes (6) CAP (community acquired pneumonia) Qualifiers: Lung location: unspecified part of lung Is this a current diagnosis for this admission?: Yes (7) Oral candidiasis Is this a current diagnosis for this admission?: Yes Plan Summary: Assessment: 24 yo man with DKA, Type II DM, morbid obesity, CAP, prolonged QTc interval, oral candidiasis. Plan: 1. Respiratory: stable on RA 2. Pulmonary: CAP. Day 3 rocephin and doxycycline 2. CV: heart rate and BP acceptable. Prolonged QTc. Will avoid QT prolonging agents. Will need follow-up EKG 3. Endocrine: recent diagnosis of type II DM. DKA-resolved. On lantus 30 u BID and SSI. Diabetic teaching 4. ID: CAP, oral candidiasis. Day 3 rocephin and doxycycline. Continue nystatin 5 Nutrition: diabetic diet. 6.Prophylaxis: will d/c lovenox. Pt is ambulatory 7. Disposition: stable for transfer to telemetry Critical Time Critical Time (minutes): 0 Level of Care: MEDICAL -: 1. The care of a critical patient is a dynamic process. This note is a sales representative education courses synopsis but static in nature. The timeframe for treatments given in order is not necessarily the actual time these treatments may have been done. 2. This patient requires critical care secondary to ongoing requirements for therapy not offered or safe outside the critical care environment. Transfer to a lower level of care will result in altered life or limb morbidity and mortality. 3. Multidisciplinary rounds completed. 4. ABCDE bundle addressed.
[2019-08-13] MEDS ORDERED: METFORMIN HCL 500 MG TABLET PO ONE (19:00)
[2019-08-14] MEDS: NORMAL SALINE 1000 ML 1,000 ML IV PRN ×3 (00:25→07:31)
[2019-08-14 01:09] LABS: ANION GAP 13 (5-19); BLOOD UREA NITROGEN 8 mg/dL (7-20); CALCIUM 9.4 mg/dL (8.4-10.2); CARBON DIOXIDE 21 mmol/L (22-30); CHLORIDE 102 mmol/L (98-107); GLUCOSE 264 mg/dL (75-110); POTASSIUM 3.1 mmol/L (3.6-5.0)
[2019-08-14] MEDS: POTASSI CL 20 MEQ/50 ML RIDER 20 MEQ/50 ML RTUPB IV SCH ×2 (01:52→03:27)
[2019-08-14 06:18] LABS: HEMATOCRIT 33.7 % (37.9-51.0); HEMOGLOBIN 11.8 g/dL (13.5-17.0); MEAN CORPUSCULAR HEMOGLOBIN 27.1 pg (27.0-33.4); MEAN CORPUSCULAR HGB CONC 35.1 g/dL (32.0-36.0); MEAN CORPUSCULAR VOLUME 77 fl (80-97); PLATELET COUNT 263 10^3/uL (150-450); RED BLOOD COUNT 4.35 10^6/uL (4.35-5.55); RED CELL DISTRIBUTION WIDTH 14.3 % (11.5-14.0); WHITE BLOOD COUNT 6.9 10^3/uL (4.0-10.5)
[2019-08-14 06:39] LABS: ANION GAP 11 (5-19); BLOOD UREA NITROGEN 8 mg/dL (7-20); CARBON DIOXIDE 21 mmol/L (22-30); CHLORIDE 105 mmol/L (98-107); GLUCOSE 241 mg/dL (75-110); POTASSIUM 3.4 mmol/L (3.6-5.0)
[2019-08-14] MEDS ORDERED: INSULIN GLARGINE,HUM.REC.ANLOG 1,000 UNIT/10 ML VIAL (PYX) SUBCUT ONE (06:40)
[2019-08-14] MEDS: INSULIN GLARGINE,HUM.REC.ANLOG 1,000 UNIT/10 ML VIAL SUBCUT SCH ×2 (06:49→18:42)
[2019-08-14] MEDS ORDERED: DEXTROSE 40% GEL 15 GM TUBE PO PRN ×2 (07:59)
[2019-08-14] MEDS ORDERED: DEXTROSE 50%-WATER 25 GM/50 ML DISP.SYRIN IV PRN ×2 (07:59)
[2019-08-14] MEDS ORDERED: GLUCAGON,HUMAN RECOMB 1 MG INJ IM PRN (07:59)
[2019-08-14] MEDS: NYSTATIN 500000 UNIT/5 ML UDCUP PO SCH ×4 (09:08→21:45)
[2019-08-14] MEDS: METFORMIN HCL 500 MG TABLET PO SCH ×2 (09:08→18:41)
[2019-08-14] MEDS: INSULIN LISPRO 100 UNIT/ML 3 ML VIAL SUBCUT SCH ×7 (09:10→21:49)
[2019-08-14] MEDS: CEFTRIAXONE 1 GM/D5W RTU 1 GM/50 ML RTUPB IV SCH (09:13)
[2019-08-14] MEDS: NYSTATIN OINTMENT 15 GM TUBE TP SCH (09:14)
[2019-08-14] MEDS: DOXYCYCLINE HYCLATE 100 MG TABLET PO SCH ×2 (10:09→21:45)
[2019-08-14 18:02] LABS: ANION GAP 9 (5-19); BLOOD UREA NITROGEN 7 mg/dL (7-20); CALCIUM 9.4 mg/dL (8.4-10.2); CARBON DIOXIDE 26 mmol/L (22-30); CHLORIDE 102 mmol/L (98-107); GLUCOSE 228 mg/dL (75-110); POTASSIUM 3.2 mmol/L (3.6-5.0)
[2019-08-14] MEDS ORDERED: POTASSIUM CHLORIDE 10 MEQ TABLET.ER PO ONE (18:10)
[2019-08-15] MEDS: INSULIN GLARGINE,HUM.REC.ANLOG 1,000 UNIT/10 ML VIAL SUBCUT SCH (06:36)
[2019-08-15] MEDS: METFORMIN HCL 500 MG TABLET PO SCH (09:17)
[2019-08-15] MEDS: INSULIN LISPRO 100 UNIT/ML 3 ML VIAL SUBCUT SCH ×4 (09:17→11:51)
[2019-08-15] MEDS: NYSTATIN 500000 UNIT/5 ML UDCUP PO SCH ×2 (09:17→14:02)
[2019-08-15] MEDS: CEFTRIAXONE 1 GM/D5W RTU 1 GM/50 ML RTUPB IV SCH (11:50)
[2019-08-15] MEDS: DOXYCYCLINE HYCLATE 100 MG TABLET PO SCH (11:50)
[2019-08-15 12:46] VITALS: BP 135/79
[2019-08-15] MEDS: NYSTATIN OINTMENT 15 GM TUBE TP SCH (12:50)
--- NOTE | 2019-08-15 18:52 | PDOC DISCHARGE SUMMARY ---
Impression - Admit/DC Date/PCP Admission Date/Primary Care Provider: 08/10/19 18:45 STIVEN PFEIFFER MD Discharge Date: 08/14/19 - Discharge Diagnosis (1) Diabetic ketoacidosis Is this a current diagnosis for this admission?: Yes (2) Diabetes Is this a current diagnosis for this admission?: Yes (3) Morbid obesity with BMI of 40.0-44.9, adult Is this a current diagnosis for this admission?: Yes - Additional Information Discharge Diet: Diabetic Referrals: STIVEN PFEIFFER MD [Primary Care Provider] - Follow up as needed Prescriptions: Potassium Chloride [K-Tab ER] 40 meq PO DAILY 3 Days #6 tablet.er Insulin Glargine,Hum.rec.anlog [Lantus Insulin 100 Unit/1 ml 10 ml] 32 unit SUBCUT BID 30 Days #2 unit Insulin Aspart [Novolog Insulin (Aspart) 100 unit/mL] 0 - 12 unit SUBCUT .SLD SCALE 30 Days #10 ml Insulin Aspart [Novolog Insulin (Aspart) 100 unit/mL] 8 unit SUBCUT AC 30 Days #10 ml Home Medications: Insulin Aspart [Novolog Insulin (Aspart) 100 unit/mL] 0 - 12 unit SUBCUT .SLD SCALE 30 Days #10 ml 08/14/19 Insulin Aspart [Novolog Insulin (Aspart) 100 unit/mL] 8 unit SUBCUT AC 30 Days #10 ml 08/14/19 Insulin Glargine,Hum.rec.anlog [Lantus Insulin 100 Unit/1 ml 10 ml] 32 unit SUBCUT BID 30 Days #2 unit 08/14/19 Potassium Chloride [K-Tab ER] 40 meq PO DAILY 3 Days #6 tablet.er 08/14/19 History of Present Illiness History of Present Illness: ANJANA GILL is a 24 year old male newly diagnosed diabetes Type II and was started on Metformin 500 mg BID presented to ED complaining c/o polyuria, polydipsia, excessive thirst and vomiting to be in DKA, was transferred to ICU started on insulin drip. Hospital Course Hospital Course: (1) Diabetic ketoacidosis Initial admitted to ICU, started on insulin drip. Once anion gap closed patient was transitioned to subcutaneous insulin and transferred to floor. (2) Diabetes Patient recently diagnosed with diabetes and discharged home on metformin 500 mg p.o. twice daily however present back in ED with DKA. Given presentation and pastients age likely has type 1 diabetes however work-up pending at the time of discharge. Patient insulin was adjusted and was DC'd home on basal, sliding scale and pre-meal insulin. Anti-LAVON 65 pending at time of discharge. Patient was counseled on his diabetic management, received diabetic education. Was asked to follow-up with PCP and drupal developer to find out if he has type I or type II and if he could be potentially transitioned to oral hypoglycemic if he is found to have type 2 diabetes. (3) Morbid obesity with BMI of 40.0-44.9, adult Diet and lifestyle modification recommended. Physical Exam Vital Signs: Temp Pulse Resp BP Pulse Ox 97.8 F 79 20 135/79 H 100 08/15/19 14:04 08/15/19 14:04 08/15/19 14:04 08/15/19 14:04 08/15/19 14:04 Intake & Output 08/14/19 08/15/19 08/16/19 06:59 06:59 06:59 Intake Total 894 3450 100 Output Total 200 Balance 694 3450 100 Weight 157.7 kg 157.9 kg General appearance: PRESENT: no acute distress, morbidly obese, well-developed, well-nourished Head exam: PRESENT: atraumatic, normocephalic Eye exam: PRESENT: conjunctiva pink, EOMI, PERRLA. ABSENT: scleral icterus Ear exam: PRESENT: normal external ear exam Mouth exam: PRESENT: moist, tongue midline Neck exam: ABSENT: carotid bruit, JVD, lymphadenopathy, thyromegaly Respiratory exam: PRESENT: clear to auscultation tarah. ABSENT: rales, rhonchi, wheezes Cardiovascular exam: PRESENT: RRR. ABSENT: diastolic murmur, rubs, systolic murmur Pulses: PRESENT: normal dorsalis pedis pul Vascular exam: PRESENT: normal capillary refill GI/Abdominal exam: PRESENT: normal bowel sounds, soft. ABSENT: distended, guarding, mass, organolmegaly, rebound, tenderness Rectal exam: PRESENT: deferred Extremities exam: PRESENT: full ROM. ABSENT: calf tenderness, clubbing, pedal edema Neurological exam: PRESENT: alert, awake, oriented to person, oriented to place, oriented to time, oriented to situation, CN II-XII grossly intact. ABSENT: motor sensory deficit Psychiatric exam: PRESENT: appropriate affect, normal mood. ABSENT: homicidal ideation, suicidal ideation Skin exam: PRESENT: dry, intact, warm. ABSENT: cyanosis, rash Results Laboratory Results: WBC 6.9 10^3/uL (4.0-10.5) 08/14/19 05:28 RBC 4.35 10^6/uL (4.35-5.55) 08/14/19 05:28 Hgb 11.8 g/dL (13.5-17.0) L 08/14/19 05:28 Hct 33.7 % (37.9-51.0) L 08/14/19 05:28 MCV 77 fl (80-97) L 08/14/19 05:28 MCH 27.1 pg (27.0-33.4) 08/14/19 05:28 MCHC 35.1 g/dL (32.0-36.0) 08/14/19 05:28 RDW 14.3 % (11.5-14.0) H 08/14/19 05:28 Plt Count 263 10^3/uL (150-450) 08/14/19 05:28 Lymph % (Auto) 30.5 % (13-45) 08/11/19 02:51 [place] % (Auto) 10.9 % (3-13) 08/11/19 02:51 Eos % (Auto) 0.9 % (0-6) 08/11/19 02:51 Baso % (Auto) 1.1 % (0-2) 08/11/19 02:51 Absolute Neuts (auto) 6.5 10^3/uL (1.7-8.2) 08/11/19 02:51 Absolute Lymphs (auto) 3.5 10^3/uL (0.5-4.7) 08/11/19 02:51 Absolute Monos (auto) 1.3 10^3/uL (0.1-1.4) 08/11/19 02:51 Absolute Eos (auto) 0.1 10^3/uL (0.0-0.6) 08/11/19 02:51 Absolute Basos (auto) 0.1 10^3/uL (0.0-0.2) 08/11/19 02:51 Seg Neutrophils % 56.6 % (42-78) 08/11/19 02:51 VBG pH 7.07 (7.30-7.42) L* 08/10/19 17:56 VBG pCO2 41.5 mmHg (35-63) 08/10/19 17:56 VBG HCO3 11.8 mmol/L (20-32) L 08/10/19 17:56 VBG Base Excess -17.7 mmol/L 08/10/19 17:56 Sodium 136.6 mmol/L (137-145) L 08/14/19 17:35 Potassium 3.2 mmol/L (3.6-5.0) L 08/14/19 17:35 Chloride 102 mmol/L (98-107) 08/14/19 17:35 Carbon Dioxide 26 mmol/L (22-30) 08/14/19 17:35 Anion Gap 9 (5-19) 08/14/19 17:35 BUN 7 mg/dL (7-20) 08/14/19 17:35 Creatinine 0.55 mg/dL (0.52-1.25) 08/14/19 17:35 Est GFR ( Amer) > 60 (>60) 08/14/19 17:35 Est GFR (MDRD) Non-Af > 60 (>60) 08/14/19 17:35 Glucose 228 mg/dL (75-110) H 08/14/19 17:35 POC Glucose 202 mg/dL (70-110) H 08/15/19 11:21 Lactic Acid 1.2 mmol/L (0.7-2.1) 08/10/19 15:57 Calcium 9.4 mg/dL (8.4-10.2) 08/14/19 17:35 Magnesium 1.9 mg/dL (1.6-2.3) 08/14/19 00:27 Total Bilirubin 0.6 mg/dL (0.2-1.3) 08/10/19 15:57 Direct Bilirubin 0.5 mg/dL (0.0-0.4) H 08/10/19 15:57 Neonat Total Bilirubin Not Reportable 08/10/19 15:57 Neonat Direct Bilirubin Not Reportable 08/10/19 15:57 Neonat Indirect Bili Not Reportable 08/10/19 15:57 AST 22 U/L (17-59) 08/10/19 15:57 ALT 28 U/L (<50) 08/10/19 15:57 Alkaline Phosphatase 147 U/L (38-126) H 08/10/19 15:57 Troponin I < 0.012 ng/mL 08/11/19 09:04 Total Protein 9.9 g/dL (6.3-8.2) H 08/10/19 15:57 Albumin 5.5 g/dL (3.5-5.0) H 08/10/19 15:57 Urine Color YELLOW 08/10/19 16:30 Urine Appearance CLEAR 08/10/19 16:30 Urine pH 6.0 (5.0-9.0) 08/10/19 16:30 Ur Specific [place] 1.023 08/10/19 16:30 Urine Protein 100 mg/dL (NEGATIVE) H 08/10/19 16:30 Urine Glucose (UA) >=500 mg/dL (NEGATIVE) H 08/10/19 16:30 Urine Ketones 80 mg/dL (NEGATIVE) H 08/10/19 16:30 Urine Blood SMALL (NEGATIVE) H 08/10/19 16:30 Urine Nitrite NEGATIVE (NEGATIVE) 08/10/19 16:30 Urine Bilirubin NEGATIVE (NEGATIVE) 08/10/19 16:30 Urine Urobilinogen NEGATIVE mg/dL (<2.0) 08/10/19 16:30 Ur Leukocyte Esterase TRACE (NEGATIVE) H 08/10/19 16:30 Urine WBC (Auto) 25 /HPF 08/10/19 16:30 Urine RBC (Auto) 1 /HPF 08/10/19 16:30 Squamous Epi Cells Auto 1 /HPF 08/10/19 16:30 Urine Mucus (Auto) RARE /LPF 08/10/19 16:30 Urine Ascorbic Acid NEGATIVE (NEGATIVE) 08/10/19 16:30 Influenza A (Rapid) NEGATIVE (NEGATIVE) 08/11/19 12:06 Influenza B (Rapid) NEGATIVE (NEGATIVE) 08/11/19 12:06 08/10/19 08/11/19 19:19 09:04 Troponin I 0.031 < 0.012 Impressions: Chest X-Ray 08/11/19 08:37 IMPRESSION: Minimal linear lingular opacities, likely possibly atelectasis or mild pneumonia. Stroke Is this a Stroke Patient?: No Acute Heart Failure - Is this a Heart Failure Patient?: No
== END 2019-08-15 14:21 | disposition home or self-care (01) | DRG 637 ==
LOC: ER 14:59 → EH 18:45 → ICU 20:16 → 5 08-14 00:03
PROVIDERS: ADMIT Internal Medicine; ATTEND Internal Medicine
DX: E11.10 Type 2 diabetes mellitus with ketoacidosis without coma (principal); J18.9 Pneumonia, unspecified organism; Z68.41 Body mass index [BMI] 40.0-44.9, adult; B37.0 Candidal stomatitis; E66.01 Morbid (severe) obesity due to excess calories; R94.31 Abnormal electrocardiogram [ECG] [EKG]; Z79.899 Other long term (current) drug therapy; Z79.4 Long term (current) use of insulin; Z79.84 Long term (current) use of oral hypoglycemic drugs; E87.6 Hypokalemia
CPT/HCPCS: 36415; 71045; 80048; 80053; 81001; 82803; 82962; 83519; 83605; 83735; 84484; 85025; 85027; 87040; 87804; 93005; 93010; 96361; 96374; 99291; J0696; J1650; J1815; J2405; J3480; J3490; J7030; J7050